=== PATIENT | female | born 1975 | race Two or more races ===

== ENCOUNTER 2021-03-29 11:48 | Emergency (ER) | payer OTHER ==
[~2021-03-29] VITALS: Ht 162.6 cm; Wt 65.0 kg
[2021-03-29] MEDS ORDERED: LIDOCAINE 1% 10 ML VIAL SQ ONE (12:45)
[2021-03-29] MEDS ORDERED: BACITRACIN 0.9 GM PACKET OINTMENT TP ONE (12:45)
[2021-03-29] MEDS ORDERED: ACETAMINOPHEN 500 MG TABLET PO ONE (12:45)
[2021-03-29] MEDS ORDERED: POVIDONE-IODINE 10% 15 ML SOLUTION UD TP ONE (12:45)
[2021-03-29 14:25] VITALS: BP 127/79
== END 2021-03-29 14:30 | disposition home or self-care (01) ==
LOC: EMS 11:48
DX: S61.217A Laceration without foreign body of left little finger without damage to nail, initial encounter (principal); W45.8XXA Other foreign body or object entering through skin, initial encounter; Y93.89 Activity, other specified; Y92.89 Other specified places as the place of occurrence of the external cause; Y99.8 Other external cause status
CPT/HCPCS: 12002; 99283; J3490